=== PATIENT | female | born 1980 | race African-American/Black ===

== ENCOUNTER 2020-03-28 22:31 | Emergency (ER) | payer SELFPAY ==
[~2020-03-28] VITALS: Ht 154.9 cm; Wt 79.4 kg
[2020-03-28 23:01] VITALS: BP 144/98
== END 2020-03-29 02:00 | disposition left against medical advice (07) ==
LOC: ER 22:33
DX: R10.9 Unspecified abdominal pain (principal); Z53.21 Procedure and treatment not carried out due to patient leaving prior to being seen by health care provider